=== PATIENT | male | born 1940 | race Caucasian/White ===

== ENCOUNTER → 2016-12-04 | Outpatient (CLI) | payer MEDICARE, OTHER ==
[~2016-12-04] MED LIST: AMOXIL875 MG PO; ASPIRIN81 MG PO; CHERATUSSIN AC118 ML PO; COREG6.25 MG PO; COZAAR100 MG PO; CYMBALTA60 M1 PO; FLOMAX0.4 MG PO; GLUCOPHAGE850 M1 PO; GLUCOTROL10 MG PO; HYDRALAZINE HCL50 MG PO; INVOKANA100 MG PO; JARDIANCE10 MG PO; LANTUS100 UNIT/1 SUBCUT; LEVAQUIN500 M1 PO; LIPITOR80 MG PO; NEURONTIN400 MG PO; NOVOLOG100 UNIT/2 SUBCUT; PRILOSEC20 MG PO; TESSALON PERLE100 M1 PO; TOPROL XL50 MG PO; TOUJEO SOL300 UNIT/1 SUBCUT
== END | disposition short-term general hospital (02) ==
LOC: CLPAIN 05:39
DX: M47.27 Other spondylosis with radiculopathy, lumbosacral region (principal); M48.06 Spinal stenosis, lumbar region

== ENCOUNTER 2016-12-18 12:40 | Day surgery (SDC) | payer MEDICARE, OTHER ==
[~2016-12-18 12:40] MED LIST changes: -AMOXIL875 MG PO; -CHERATUSSIN AC118 ML PO; -COREG6.25 MG PO; -JARDIANCE10 MG PO; -LEVAQUIN500 M1 PO; -PRILOSEC20 MG PO; -TESSALON PERLE100 M1 PO
== END 2016-12-18 15:12 | disposition short-term general hospital (02) ==
LOC: SURGOP 12:40
PROC: 3E0R33Z Introduction of Anti-inflammatory into Spinal Canal, Percutaneous Approach (ICD-10-PCS; principal; 2016-12-18)
PROC: 3E0R3BZ Introduction of Anesthetic Agent into Spinal Canal, Percutaneous Approach (ICD-10-PCS; 2016-12-18)
DX: M48.06 Spinal stenosis, lumbar region (principal)
CPT/HCPCS: J1040; Q9967

== ENCOUNTER 2017-03-24 16:37 | Emergency (ER) | payer MEDICARE, OTHER ==
[~2017-03-24] VITALS: Ht 170.2 cm; Wt 95.7 kg
== END 2017-03-24 17:50 | disposition short-term general hospital (02) ==
LOC: ER 16:37
DX: S63.501A Unspecified sprain of right wrist, initial encounter (principal); I12.9 Hypertensive chronic kidney disease with stage 1 through stage 4 chronic kidney disease, or unspecified chronic kidney disease; N18.9 Chronic kidney disease, unspecified; M25.552 Pain in left hip; M25.562 Pain in left knee; E11.22 Type 2 diabetes mellitus with diabetic chronic kidney disease; E11.40 Type 2 diabetes mellitus with diabetic neuropathy, unspecified; E78.5 Hyperlipidemia, unspecified; F41.9 Anxiety disorder, unspecified; I25.10 Atherosclerotic heart disease of native coronary artery without angina pectoris; D64.9 Anemia, unspecified; N40.0 Benign prostatic hyperplasia without lower urinary tract symptoms; Z95.818 Presence of other cardiac implants and grafts; Z98.890 Other specified postprocedural states; Z90.89 Acquired absence of other organs; W18.30XA Fall on same level, unspecified, initial encounter
CPT/HCPCS: 73502-LT

== ENCOUNTER 2017-04-01 00:47 | Inpatient (IN) | payer MEDICARE, OTHER ==
[~2017-04-01] VITALS: Ht 175.3 cm; Wt 92.3 kg
[2017-04-01] MEDS ORDERED: PRILOSEC20 MG PO (01:56)
[2017-04-01] MEDS ORDERED: JARDIANCE10 MG PO (01:57)
[2017-04-01] MEDS ORDERED: AMOXIL875 MG PO (01:58)
[2017-04-01] MEDS ORDERED: COREG6.25 MG PO (01:58)
[2017-04-02] MEDS ORDERED: TESSALON PERLE100 M1 PO (10:03)
[2017-04-02] MEDS ORDERED: CHERATUSSIN AC118 ML PO (10:05)
[2017-04-02] MEDS ORDERED: LEVAQUIN500 M1 PO (10:10)
== END 2017-04-02 13:00 | disposition short-term general hospital (02) | DRG 871 ==
LOC: ER 00:47 → IP 02:25
PROVIDERS: ADMIT Family Medicine
PROC: 3E0F7GC Introduction of Other Therapeutic Substance into Respiratory Tract, Via Natural or Artificial Opening (ICD-10-PCS; principal; 2017-04-01)
PROC: F08Z2FZ Grooming/Personal Hygiene Treatment using Assistive, Adaptive, Supportive or Protective Equipment (ICD-10-PCS; principal; 2017-04-01)
PROC: F07Z9FZ Gait Training/Functional Ambulation Treatment using Assistive, Adaptive, Supportive or Protective Equipment (ICD-10-PCS; principal; 2017-04-01)
DX: A41.9 Sepsis, unspecified organism (principal); J18.9 Pneumonia, unspecified organism; E11.9 Type 2 diabetes mellitus without complications; I10 Essential (primary) hypertension; I25.10 Atherosclerotic heart disease of native coronary artery without angina pectoris
CPT/HCPCS: J0696; J1650; J1815; J1956